=== PATIENT | female | born 1985 | race Caucasian/White ===

== ENCOUNTER 2016-12-26 11:48 | Day surgery (SDC) | payer OTHER ==
[~2016-12-26] VITALS: Ht 160 cm; Wt 132.0 kg
[2016-12-26 12:07] LABS: BASOPHILS # (AUTO) 0.1 K/uL (0.00-0.22); BASOPHILS % (AUTO) 1.4 % (0.0-2.0); EOSINOPHILS # (AUTO) 0.1 K/uL (0-0.4); HEMOGLOBIN 13.1 g/dL (12.0-16.0); LYMPHOCYTES # (AUTO) 2.2 K/uL (2.5-16.5); LYMPHOCYTES % (AUTO) 22.3 % (20.5-51.1); MEAN CORPUSCULAR HEMOGLOBIN 28 pg (27-31); MEAN CORPUSCULAR HGB CONC 34 g/dL (33-37); MEAN CORPUSCULAR VOLUME 84 fL (80-94); MONOCYTES # (AUTO) 0.3 K/uL (0.8-1.0); MONOCYTES % (AUTO) 3.4 % (1.7-9.3); NEUTROPHILS # (AUTO) 7.3 K/uL (1.8-7.7); NEUTROPHILS % (AUTO) 71.9 % (42.2-75.2); PLATELET COUNT (AUTO) 377 K/uL (140-450); RED BLOOD CELL COUNT(AUTO) 4.64 MIL/uL (4.20-5.40); RED CELL DISTRIBUTION WIDTH 12.9 % (11.6-13.7)
[2016-12-26] MEDS ORDERED: ONDANSETRON 4 MG/2 ML VIAL IVP ONE (13:03)
[2016-12-26] MEDS ORDERED: DEXAMETHASONE 4 MG/ML VIAL IVP ONE (13:03)
[2016-12-26] MEDS ORDERED: KETOROLAC 30 MG/ML VIAL IVP ONE (13:03)
[2016-12-26] MEDS ORDERED: SEVOFLURANE 250 ML BTL INH ONE (13:03)
[2016-12-26] MEDS ORDERED: PROPOFOL 200 MG/20 ML VIAL IV ONE (13:03)
[2016-12-26] MEDS ORDERED: fentaNYL 0.05 MG/ML VIAL ONE (13:11)
[2016-12-26] MEDS ORDERED: IBUPROFEN 800 MG TAB PO PRN (13:30)
[2016-12-26] MEDS ORDERED: ACETAMINOPHEN/CODEINE 300/30MG 1 TAB PO PRN (13:30)
[2016-12-26] MEDS ORDERED: MORPHINE SULFATE 4 MG/ML SYR IM/IVP PRN (13:30)
[2016-12-26] MEDS ORDERED: ONDANSETRON 4 MG/2 ML VIAL IVP PRN ×2 (13:30→13:40)
[2016-12-26] MEDS: HYDROmorphone 1 MG/ML AMP IVP PRN ×4 (13:40→14:10)
[2016-12-26] MEDS ORDERED: diphenhydrAMINE 50 MG/ML VIAL IVP PRN (13:40)
[2016-12-26] MEDS ORDERED: HYDROmorphone PFS 2 MG/ML SYR ONE (13:41)
[2016-12-26] MEDS ORDERED: diphenhydrAMINE 50 MG/ML VIAL ONE (13:48)
[2016-12-26] MEDS ORDERED: MOT100L PO (13:57)
[2016-12-26 14:21] LABS: APPEARANCE,URINE SL CLOUDY (CLEAR); BILIRUBIN,URINE NEGATIVE (NEGATIVE); BLOOD, URINE 3+ (NEGATIVE); COLOR,URINE YELLOW (YELLOW); LEUKOCYTE ESTERASE ,URINE NEGATIVE (NEGATIVE); NITRITE, URINE NEGATIVE (NEGATIVE); PROTEIN,URINE TRACE (NEGATIVE); UGLUCOSE NEGATIVE (NEGATIVE); UROBILINOGEN,URINE 0.2 EU/dL (0.2 - 1)
[2016-12-26 14:38] LABS: BACTERIA,URINE 1+ /HPF (None Seen); WBC,URINE 0-3 /HPF (0-5)
== END 2016-12-26 16:00 | disposition home or self-care (01) ==
LOC: MMU 11:48 → MDS 11:48
PROVIDERS: ATTEND Obstetrics & Gynecology
DX: N92.1 Excessive and frequent menstruation with irregular cycle (principal); E66.01 Morbid (severe) obesity due to excess calories; Z68.43 Body mass index [BMI] 50.0-59.9, adult
CPT/HCPCS: 36415; 58120; 81001; 84702; 85025; 87086; J1100; J1170; J1200; J1885; J2270; J2405; J2704; J3010; J7120

== ENCOUNTER 2017-09-02 16:13 | Emergency (ER) | payer OTHER ==
[~2017-09-02] VITALS: Ht 162.6 cm; Wt 118.8 kg
[~2017-09-02 16:13] MED LIST: IBUP100S26 PO
[2017-09-02 16:30] VITALS: BP 102/60
--- NOTE | 2017-09-02 16:36 | NUR ---
pt to lobby awaiting room for MSE. ELLIOT. KAVITA.
--- NOTE | 2017-09-02 17:33 | NUR ---
PT TAKEN TO BED 3.
--- NOTE | 2017-09-02 17:35 | NUR ---
c/o vaginal bleeding since 08/07/17, progressively getting better since taking estrogen. now pt sts she is changing pad every 30 minutes. pt also reports 10/10 suprapubic pain. hx--ovarian cyst, uterine fibroids surgery-d/c done here on 12/22.
[2017-09-02 18:06] LABS: BASOPHILS # (AUTO) 0.2 K/uL (0.00-0.22); BASOPHILS % (AUTO) 2.2 % (0.0-2.0); EOSINOPHILS % (AUTO) 0.4 % (0.0-4.0); HEMATOCRIT 39.1 % (36-48); HEMOGLOBIN 13.2 g/dL (12.0-16.0); LYMPHOCYTES # (AUTO) 2.2 K/uL (2.5-16.5); LYMPHOCYTES % (AUTO) 20.6 % (20.5-51.1); MEAN CORPUSCULAR HEMOGLOBIN 29 pg (27-31); MEAN CORPUSCULAR HGB CONC 34 g/dL (33-37); MEAN CORPUSCULAR VOLUME 86 fL (80-94); MONOCYTES # (AUTO) 0.6 K/uL (0.8-1.0); NEUTROPHILS # (AUTO) 7.4 K/uL (1.8-7.7); NEUTROPHILS % (AUTO) 70.8 % (42.2-75.2); PLATELET COUNT (AUTO) 345 K/uL (140-450); RED BLOOD CELL COUNT(AUTO) 4.53 MIL/uL (4.20-5.40); RED CELL DISTRIBUTION WIDTH 12.6 % (11.6-13.7); WHITE BLOOD COUNT (AUTO) 10.4 K/uL (4.8-10.8)
[2017-09-02] MEDS ORDERED: MORPHINE SULFATE 2 MG/ML SYR IM ONE (18:10)
[2017-09-02] MEDS ORDERED: NACL 0.9% 1,000 ML IV ONE (18:35)
[2017-09-02 18:46] VITALS: BP 123/72
--- NOTE | 2017-09-02 18:46 | NUR ---
Patient discharged with v/s stable. Written and verbal after care instructions given and explained. Patient alert, oriented and verbalized understanding of instructions. Ambulatory with steady gait. All questions addressed prior to discharge. ID band removed. Patient advised to follow up with PMD. Rx of PROVERA& TRAMADOL given. Patient educated on indication of medication including possible reaction and side effects. Opportunity to ask questions provided and answered.
[2017-09-02 19:19] LABS: ALBUMIN 3.7 g/dL (3.4-5.0); ANION GAP 12.7 (8-16); CARBON DIOXIDE 25.3 mmol/L (21-32); CREATININE 1.1 mg/dL (0.6-1.3); TOTAL BILIRUBIN 0.2 mg/dL (0.0-1.0)
== END 2017-09-02 18:46 | disposition home or self-care (01) ==
LOC: MED 16:13
DX: N94.6 Dysmenorrhea, unspecified (principal); Z88.1 Allergy status to other antibiotic agents; Z91.010 Allergy to peanuts
CPT/HCPCS: 36415; 80053; 85025; 96372; 99284; J2270; J7030

== ENCOUNTER 2018-05-02 14:06 | Emergency (ER) | payer SELFPAY ==
[~2018-05-02] VITALS: Ht 167.6 cm; Wt 90.7 kg
[2018-05-02 14:29] VITALS: BP 124/79
--- NOTE | 2018-05-02 14:29 | NUR ---
PT AMBULATES W/ STEADY GAIT TO BED 2 AT THIS TIME. REPORT GIVEN TO SYMONE DAI
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
--- NOTE | 2018-05-02 14:55 | NUR ---
Patient being evaluated by DR MARES at bedside.
[2018-05-02] MEDS ORDERED: diphenhydrAMINE 50 MG/ML VIAL IM ONE (15:15)
[2018-05-02] MEDS ORDERED: KETOROLAC 60 MG/2 ML VIAL IM ONE (15:15)
[2018-05-02] MEDS ORDERED: MORPHINE SULFATE 2 MG/ML SYR IM ONE (15:15)
[2018-05-02 17:49] VITALS: BP 115/71
== END 2018-05-02 17:49 | disposition home or self-care (01) ==
LOC: MED 14:06
DX: M25.511 Pain in right shoulder (principal); M25.512 Pain in left shoulder; M54.2 Cervicalgia; M54.5 Low back pain; Z88.1 Allergy status to other antibiotic agents; Z79.899 Other long term (current) drug therapy; W20.8XXA Other cause of strike by thrown, projected or falling object, initial encounter; Y93.E1 Activity, personal bathing and showering; Y92.89 Other specified places as the place of occurrence of the external cause; Y99.8 Other external cause status
CPT/HCPCS: 71046; 72040; 72110; 73030; 81002; 81025; 96372; 99284; J1200; J1885; J2270

== ENCOUNTER 2018-07-08 10:09 | Emergency (ER) | payer OTHER ==
[~2018-07-08] VITALS: Ht 160 cm; Wt 111.2 kg
[2018-07-08 10:13] VITALS: BP 122/78
--- NOTE | 2018-07-08 10:19 | NUR ---
PT AMBULATES TO BED 6
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
--- NOTE | 2018-07-08 10:34 | NUR ---
Patient being evaluated by moris COON at bedside.
[2018-07-08] MEDS ORDERED: KETOROLAC 60 MG/2 ML VIAL IM ONE (10:40)
--- NOTE | 2018-07-08 10:45 | NUR ---
PT TAKENT TO CT IN [place]
[2018-07-08 12:08] VITALS: BP 118/74
--- NOTE | 2018-07-08 12:08 | NUR ---
Patient discharged with v/s stable. Written and verbal after care instructions given and explained. Patient alert, oriented and verbalized understanding of instructions. Ambulatory with steady gait. All questions addressed prior to discharge. ID band removed. Patient advised to follow up with PMD. Rx of NAPROSYN& SOMA given. Patient educated on indication of medication including possible reaction and side effects. Opportunity to ask questions provided and answered.
== END 2018-07-08 12:08 | disposition home or self-care (01) ==
LOC: MED 10:09
DX: S13.4XXA Sprain of ligaments of cervical spine, initial encounter (principal); Z88.1 Allergy status to other antibiotic agents; Z91.010 Allergy to peanuts; Z79.1 Long term (current) use of non-steroidal anti-inflammatories (NSAID); W01.0XXA Fall on same level from slipping, tripping and stumbling without subsequent striking against object, initial encounter; Y93.89 Activity, other specified; Y92.89 Other specified places as the place of occurrence of the external cause; Y99.8 Other external cause status
CPT/HCPCS: 70450; 70490; 96372; 99284; J1885